=== PATIENT | female | born 1985 | race Caucasian/White ===

== ENCOUNTER 2016-12-24 11:11 | Emergency (ER) | payer OTHER ==
[~2016-12-24] VITALS: Ht 167.6 cm; Wt 54.9 kg
[~2016-12-24 11:11] MED LIST: LITHIUM CARBON300 M2 PO; NAPROSYN500 MG PO; SKELAXIN800 MG PO; TRAMADOL HCL50 MG PO
[2016-12-24 11:16] VITALS: BP 115/81
[2016-12-24] MEDS ORDERED: TRAMADOL HCL50 MG PO (13:07)
[2016-12-24] MEDS ORDERED: NAPROSYN500 MG PO (13:07)
== END 2016-12-24 13:12 | disposition home or self-care (01) ==
LOC: EME 11:11
DX: S93.601A Unspecified sprain of right foot, initial encounter (principal); X50.1XXA Overexertion from prolonged static or awkward postures, initial encounter; F17.210 Nicotine dependence, cigarettes, uncomplicated; Z71.6 Tobacco abuse counseling
CPT/HCPCS: 73630; 99281; 99284

== ENCOUNTER 2017-09-17 19:30 | Emergency (ER) | payer OTHER ==
[~2017-09-17] VITALS: Ht 167.6 cm; Wt 57.1 kg
[2017-09-17] MEDS ORDERED: NORCO 5/3251 TABLET PO (22:03)
[2017-09-17] MEDS ORDERED: NAPROSYN375 MG PO (22:03)
[2017-09-17 23:01] VITALS: BP 134/89
== END 2017-09-17 23:02 | disposition home or self-care (01) ==
LOC: EME 19:30
DX: S80.01XA Contusion of right knee, initial encounter (principal); W01.0XXA Fall on same level from slipping, tripping and stumbling without subsequent striking against object, initial encounter; Y93.89 Activity, other specified
CPT/HCPCS: 73564; 99281; 99283